=== PATIENT | female | born 1945 | race African-American/Black ===

== ENCOUNTER 2019-08-21 23:59 | Emergency (ER) | payer MEDICARE, MEDICAID ==
[~2019-08-21] VITALS: Ht 167.6 cm; Wt 90.7 kg
[2019-08-22] MEDS ORDERED: VICODIN ES 7.51 EAC1 ORAL (00:06)
[2019-08-22] MEDS ORDERED: XANAX0.25 MG ORAL (00:07)
[2019-08-22 00:10] VITALS: BP 184/101
--- NOTE | 2019-08-22 00:10 | NUR ---
ED Nurse Note: Patient brought in by CLAUDETTE RA29 d/t flight of ideas. Patient is homeless. Patient alert and oriented to person, place, and time but unable to determine purpose. Patient ambulatory. Per EMS, patient was found outside rambling and unable to get clear history from patient. Patient stated she has hypertension and psych problems and takes medications but unable to recall names or dosages. Patient placed in psych gown and provided with warm blanket. No acute distress at this time.
--- NOTE | 2019-08-22 00:25 | NUR ---
ED Nurse Note: ERMD at bedside
--- NOTE | 2019-08-22 00:31 | Emergency Room Report ---
History of Present Illness General Chief Complaint: General Complaint Source: Patient, EMS Present Illness HPI 74-year-old female who presents with chief complaint of body pain. She was brought in by EMS. She called them from a nearby fire station. She said that she has body pain and has a bad heart. She was just at [facility] yesterday. She is requesting a shot of Dilaudid. No fever chills but no nausea no vomiting. Also said is cold outside and she wants to come in here. She has been in multiple ERs. Pain is 10 out of 10. Nothing made it better nothing better worse. Allergies: Coded Allergies: HALOPERIDOL (Verified Allergy, Mild, 08/22/19) Patient History Past Medical History: see triage record, old chart reviewed Past Surgical History: none Pertinent Family History: none Social History: Reports: smoking Now: No Immunizations: other Reviewed Nursing Documentation: PMH: Agreed; PSxH: Agreed Nursing Documentation-PMH Past Medical History: No History, Except For History Of Psychiatric Problem: Yes - unknown Review of Systems Eye: Denies: eye pain, blurred vision ENT: Denies: ear pain, nose congestion, throat swelling Respiratory: Denies: cough, shortness of breath Cardiovascular: Denies: chest pain, palpitations Gastrointestinal: Denies: abdominal pain, diarrhea, nausea, vomiting Musculoskeletal: Reports: joint swelling, muscle pain; Denies: back pain, joint pain Skin: Denies: rash Neurological: Denies: headache, numbness Endocrine: Denies: increased thirst, increased urine Hematologic/Lymphatic: Denies: easy bruising All Other Systems: negative except mentioned in HPI Physical Exam Vital Signs Date Time Temp Pulse Resp B/P (MAP) Pulse Ox O2 Delivery O2 Flow Rate FiO2 08/22/19 00:02 97.5 100 18 100 Room Air Vitals normal Sp02 EP Interpretation: reviewed, normal General Appearance: well appearing, no apparent distress, alert Head: normocephalic, atraumatic Eyes: bilateral eye PERRL, bilateral eye EOMI ENT: hearing grossly normal, normal pharynx Neck: full range of motion, supple, no meningismus Respiratory: chest non-tender, lungs clear, normal breath sounds Cardiovascular #1: regular rate, rhythm, no murmur Gastrointestinal: normal bowel sounds, non tender, no mass, no organomegaly, no bruit, non-distended Musculoskeletal: back normal, normal range of motion, gait/station normal Psychiatric: mood/affect normal Medical Decision Making Diagnostic Impression: Primary Impression: Opioid dependence Qualified Codes: F11.20 - Opioid dependence, uncomplicated Additional Impression: Pain syndrome, chronic ER Course Patient presents with chronic pain. No evidence of ACS, PE, dissection to name a few. I checked the [facility] system. She received 240 tablets of narcotics last month. Also 240 tablets of benzodiazepine. This is from several doctors. When I asked her about her [place], came agitated and started saying that she is not a drug addict and does not sell her medication on the street. Last Vital Signs Date Time Temp Pulse Resp B/P (MAP) Pulse Ox O2 Delivery O2 Flow Rate FiO2 08/22/19 00:02 97.5 100 18 100 Room Air Status: improved Disposition: HOME, SELF-CARE Condition: Stable Referrals: NOT CHOSEN IPA/,REFERRING (PCP) Additional Instructions: Follow-up with your doctor in 7 days. Abstain from drugs and alcohol. Stop going to different hospitals for pain medication. Return if symptoms worsen. Alireza Ray MD Aug 22, 2019 00:31
--- NOTE | 2019-08-22 01:14 | NUR ---
ED Nurse Note: ERMD at bedside
[2019-08-22 05:09] VITALS: BP 152/99
--- NOTE | 2019-08-22 05:09 | NUR ---
ER DISCHARGE NOTE: Patient cleared for dc per ERMD. patient given discharge information, verbalized understanding. patient shortly after refused to leave premises without food and drink. pt given morning coffee and sandwich as well as dry clothes to change into. pt aao x 3 and ambulatory. pt still refused to leave premises and security was called. security escorted patient out to waiting room in stable condition. no acute distress upon discharge.
== END 2019-08-22 05:09 | disposition home or self-care (01) ==
LOC: EDBD 23:59 → EMR 08-22 00:14
DX: G89.29 Other chronic pain (principal); F11.20 Opioid dependence, uncomplicated; F17.200 Nicotine dependence, unspecified, uncomplicated; Z88.8 Allergy status to other drugs, medicaments and biological substances
CPT/HCPCS: 84484; 99283